=== PATIENT | female | born 1965 | race American Indian/Alaskan Native ===

== ENCOUNTER 2017-06-02 08:00 | Emergency (ER) | payer BC ==
[2017-06-02 08:07] VITALS: BP 111/61
--- NOTE | 2017-06-02 09:23 | Emergency Department Report ---
ED ENT HPI - General Chief complaint: Earache Stated complaint: RIGHT EAR RINGING Source: patient Mode of arrival: Ambulatory Limitations: No Limitations - History of Present Illness Initial comments: 51-year-old -[place] female comes in for complaint of right ear and neck pain 2 days. Patient denies any fever or chills no nausea no vomiting. She denies any discharge from the ears. She reports that she recently got her hair done on Friday. She has no past medical history currently takes no medications has no known drug allergies MD complaint: sore throat, ear pain Severity: moderate Severity scale (0 -10): 7 Quality: aching Consistency: constant Improves with: none Worsens with: swallowing - Related Data Previous Rx's Medication Instructions Recorded Last Taken Type Amoxicillin [Amoxicillin TAB] 875 mg PO BID #20 tablet 06/02/17 Unknown Rx Ibuprofen 800 mg PO Q8H PRN #15 tablet 06/02/17 Unknown Rx Allergies Allergy/AdvReac Type Severity Reaction Status Date / Time No Known Allergies Allergy Unverified 06/02/17 08:07 ED Dental HPI - General Chief complaint: Earache Stated complaint: RIGHT EAR RINGING Source: patient Mode of arrival: Ambulatory Limitations: No Limitations - Related Data Previous Rx's Medication Instructions Recorded Last Taken Type Amoxicillin [Amoxicillin TAB] 875 mg PO BID #20 tablet 06/02/17 Unknown Rx Ibuprofen 800 mg PO Q8H PRN #15 tablet 06/02/17 Unknown Rx Allergies Allergy/AdvReac Type Severity Reaction Status Date / Time No Known Allergies Allergy Unverified 06/02/17 08:07 ED Review of Systems ROS: Stated complaint: RIGHT EAR RINGING Other details as noted in HPI ENT: ear pain (right), congestion Respiratory: cough Cardiovascular: denies: chest pain, palpitations Endocrine: no symptoms reported Gastrointestinal: denies: abdominal pain, nausea, diarrhea Genitourinary: denies: urgency, dysuria, discharge Musculoskeletal: denies: back pain, joint swelling, arthralgia Skin: denies: rash, lesions Neurological: denies: headache, weakness, paresthesias Psychiatric: denies: anxiety, depression Hematological/Lymphatic: denies: easy bleeding, easy bruising ED Past Medical Hx - Past Medical History Previous Medical History?: No - Surgical History Past Surgical History?: Yes Hx Appendectomy: Yes - Social History Smoking Status: Never Smoker Substance Use Type: Alcohol, Marijuana - Medications Home Medications: Home Medications Medication Instructions Recorded Confirmed Last Taken Type Amoxicillin [Amoxicillin TAB] 875 mg PO BID #20 tablet 06/02/17 Unknown Rx Ibuprofen 800 mg PO Q8H PRN #15 tablet 06/02/17 Unknown Rx ED Physical Exam - General Limitations: No Limitations General appearance: alert, in no apparent distress - Head Head exam: Present: atraumatic, normocephalic - ENT ENT exam: Present: mucous membranes moist, normal external ear exam - Expanded ENT Exam Expanded TM/Canal exam: Erythema: Right TM Throat exam: Positive: tonsillar erythema - Neck Neck exam: Present: lymphadenopathy (right) - Respiratory Respiratory exam: Present: normal lung sounds bilaterally. Absent: respiratory distress - Cardiovascular Cardiovascular Exam: Present: regular rate, normal rhythm. Absent: systolic murmur, diastolic murmur, rubs, gallop - Extremities Exam Extremities exam: Present: normal inspection - Back Exam Back exam: Present: normal inspection - Neurological Exam Neurological exam: Present: alert, oriented X3 - Skin Skin exam: Present: warm, dry, intact, normal color. Absent: rash ED Course Vital Signs 06/02/17 08:03 Temperature 98.3 F Pulse Rate 66 Respiratory 18 Rate Blood Pressure 111/61 O2 Sat by Pulse 98 Oximetry ED Medical Decision Making - Medical Decision Making Patient has been evaluated by this provider fast track. I discussed the patient her exam she does have right lymphadenopathy pharyngitis is red and swollen, right ear is erythematous. Discussed the patient replace her antibiotics and have her follow-up with the primary care provider patient verbalized understanding. Critical care attestation.: If time is entered above; I have spent that time in minutes in the direct care of this critically ill patient, excluding procedure time. ED Disposition Clinical Impression: Otitis media Qualifiers: Otitis media type: unspecified Chronicity: acute Qualified Code(s): H66.90 - Otitis media, unspecified, unspecified ear Disposition: - TO HOME OR SELFCARE Is pt being admited?: No Does the pt Need Aspirin: No Condition: Stable Instructions: Otitis Media (ED) Additional Instructions: Please complete antibiotics as prescribed. Ibuprofen for pain and swelling. Follow-up with the primary care provider. Prescriptions: Amoxicillin [Amoxicillin TAB] 875 mg PO BID #20 tablet Ibuprofen 800 mg PO Q8H PRN #15 tablet PRN Reason: Pain Referrals: PRIMARY CAREMD [Primary Care Provider] - 3-5 Days ELIZABETH HAWK MD [Staff Physician] - 3-5 Days Forms: Work/School Release Form(ED)
[2017-06-02] MEDS ORDERED: MOTRIN PO ONE (09:26)
== END 2017-06-02 09:38 | disposition home or self-care (01) ==
LOC: ED 08:00
DX: H66.90 Otitis media, unspecified, unspecified ear (principal); M54.2 Cervicalgia; J02.9 Acute pharyngitis, unspecified; F12.10 Cannabis abuse, uncomplicated
CPT/HCPCS: 99282

== ENCOUNTER 2017-06-23 13:10 | Observation (INO) | payer BC ==
[2017-06-23] MEDS ORDERED: ASPIRIN PO ONE (13:23)
[2017-06-23 14:03] LABS: BUN/Creatinine Ratio 14; Blood Urea Nitrogen 11 mg/dL (7-17); Calcium 9.3 mg/dL (8.4-10.2); Hemolysis Index 12
[2017-06-23 14:06] LABS: Basophils # (Auto) 0.1 K/mm3 (0.0-0.1); Basophils % (Auto) 1.2 % (0.0-1.8); Eosinophils # (Auto) 0.1 K/mm3 (0.0-0.4); Eosinophils % (Auto) 3.1 % (0.0-4.3); Hematocrit 40.7 % (30.3-42.9); Hemoglobin 13.2 gm/dl (10.1-14.3); Lymphocytes # (Auto) 1.7 K/mm3 (1.2-5.4); Lymphocytes % (Auto) 38.4 % (13.4-35.0); Mean Corpuscular HGB Conc 32 % (30-34); Mean Corpuscular Hemoglobin 26 pg (28-32); Mean Corpuscular Volume 81 fl (79-97); Monocytes # (Auto) 0.4 K/mm3 (0.0-0.8); Monocytes % (Auto) 8.9 % (0.0-7.3); Platelet Count 288 K/mm3 (140-440); Red Blood Count 5.04 M/mm3 (3.65-5.03); Red Cell Distribution Width 14.6 % (13.2-15.2)
[2017-06-23] MEDS ORDERED: TYLENOL PO ONE (14:35)
[2017-06-23] MEDS ORDERED: NITROSTAT SL ONE (14:35)
[2017-06-23] MEDS ORDERED: BABY ASPIRIN PO ONE (14:36)
--- NOTE | 2017-06-23 14:36 | Emergency Department Report ---
HPI - General Chief Complaint: Chest Pain Time Seen by Provider: 06/23/17 14:29 - HPI HPI: The patient is a 51-year-old female with a history of hypertension and high cholesterol, who presents for evaluation of chest pain. The patient reports midsternal chest pain for the past one to 2 weeks, constant and pressure-like in quality, moderate severity. She states that her pain feels like "something is sitting on her chest." She states that she has not had a stress test or echocardiogram within the past year. She recently moved to [facility] and does not have an established primary care physician. The patient denies fever, neck pain , parasthesias, dyspnea, cough, hemoptysis, palpitations, dizziness, syncope, unilateral leg swelling, calf muscle pain. Patient also denies cocaine or other stimulant use, history of DVT or PE, recent immobilization, or history of cancer. ED Past Medical Hx - Past Medical History Previous Medical History?: No - Surgical History Past Surgical History?: Yes Hx Appendectomy: Yes - Social History Smoking Status: Never Smoker Substance Use Type: None, Alcohol - Medications Home Medications: Home Medications Medication Instructions Recorded Confirmed Last Taken Type Fluticasone [Flonase] 1 spray NS QDAY 06/23/17 06/23/17 Unknown History ED Review of Systems ROS: Stated complaint: C/P Other details as noted in HPI Constitutional: denies: fever ENT: denies: throat or neck pain Respiratory: denies: cough, shortness of breath Cardiovascular: reports chest pain Endocrine: denies unexplained weight loss or gain Gastrointestinal: denies: abdominal pain, nausea Genitourinary: denies: dysuria Musculoskeletal: denies: leg swelling Skin: denies: rash Neurological: denies: headache Hematological/Lymphatic: denies: easy bleeding or easy bruising Psych: denies sadness or hopelessness Physical Exam - Physical Exam Vital Signs: Vital Signs 06/23/17 13:15 Temperature 97.7 F Pulse Rate 73 Respiratory 18 Rate Blood Pressure 120/75 O2 Sat by Pulse 100 Oximetry Physical Exam: General: well-nourished, well-developed, no acute distress Head: Normocephalic, atraumatic Eyes: normal sclera ENT: Mucous membranes are pink and moist Neck: trachea midline, neck supple, No neck stiffness, no cervical adenopathy Respiratory: Breath sounds equal bilaterally, no wheezing, rales, or rhonchi Cardio: S1 and S2 present, no murmurs, rubs, gallops, capillary refill is brisk Abdomen: Normoactive bowel sounds, soft abdomen, no rigidity, no guarding or rebound tenderness Chest WALL/Back: No tenderness to palpation of the chest wall, no CVA tenderness with percussion Musc: No pitting edema Skin: No rash Neuro: no facial drooping, normal speech Psych: Normal affect ED Course Vital Signs 06/23/17 13:15 Temperature 97.7 F Pulse Rate 73 Respiratory 18 Rate Blood Pressure 120/75 O2 Sat by Pulse 100 Oximetry ED Medical Decision Making - Lab Data Result diagrams: 06/23/17 13:29 06/23/17 13:29 - Medical Decision Making The patient was seen and examined by myself. The patient is placed on a mechanical integrity engineer and continuous pulse ox. On initial evaluation, the patient was found to be in no distress. EKG exhibited normal sinus rhythm and rate, and was negative for findings concerning for acute cardiac infarct at this time. The patient is given an aspirin and a tablet of tylenol. Labs and imaging are obtained. Chest x-ray is negative for pneumothorax, focal consolidation, pulmonary vascular congestion, pleural effusion, or other obvious acute cardiopulmonary disease process. Lab results were non-revealing including negative troponin, WBC, hemoglobin, hematocrit, electrolytes, renal function. The patient was reevaluated and reported that their symptoms were improved. As the patient has experienced constant pressure-like chest pain and risk factors for development of acute coronary event, and has not had a stress test within the past year, the patient will be admitted for close cardiopulmonary monitoring, serial troponins, and evaluation by cardiology. The on-call hospitalist service was contacted. They agreed to admit the patient for further treatment and close monitoring. The ED admit order was placed. The patient was admitted in guarded condition. Critical care attestation.: If time is entered above; I have spent that time in minutes in the direct care of this critically ill patient, excluding procedure time. ED Disposition Clinical Impression: Acute chest pain Disposition: OP ADMIT IP TO THIS HOSP Is pt being admited?: Yes Does the pt Need Aspirin: Yes Condition: Stable Time of Disposition: 14:35
--- NOTE | 2017-06-23 15:27 | XRay Report ---
AP CHEST: HISTORY: chest pain AP view of the chest demonstrates a normal mediastinal and cardiac contour with clear lungs and normal bony and soft tissue structures. IMPRESSION: Unremarkable AP chest.
[2017-06-23] MEDS ORDERED: TYLENOL ONE (15:29)
[2017-06-23] MEDS ORDERED: ASPIRIN ONE (15:29)
--- NOTE | 2017-06-23 15:38 | History and Physical Report ---
History of Present Illness Date of admission: 06/23/17 15:09 Chief complaint: chest pain History of present illness: 51 YO Female with Obesity presents to ED for evaluation. Pt states that she has experienced pain in her chest for the past 2 weeks with worsening symptoms over the past 1 day. Pt states that pain is 8/10, constant, nonradiating, crushing, worsened with exertion, relieved with rest. Pd denies fever, chills, neck pain , parasthesias, dyspnea, productive cough, hemoptysis, palpitations, brbpr, skin rash, dizziness, syncope, unilateral leg swelling, calf muscle pain, prolonged immobility/travel, individual/family history of DVT/PE, trauma, or recent ill contacts. Pt seen and evaluated in ED and found to have Angina. Pt admitted to telemetry. Cardiology consulted in ED. Past History Past Medical History: other (Obesity) Past Surgical History: appendectomy Social history: single. denies: smoking, alcohol abuse, prescription drug abuse Family history: hypertension Medications and Allergies Allergies Allergy/AdvReac Type Severity Reaction Status Date / Time No Known Allergies Allergy Unverified 06/02/17 08:07 Home Medications Medication Instructions Recorded Confirmed Last Taken Type Fluticasone [Flonase] 1 spray NS QDAY 06/23/17 06/23/17 Unknown History Review of Systems Constitutional: no weight loss, no weight gain, no fever Ears, nose, mouth and throat: no ear pain, no ear discharge, no tinnitis, no decreased hearing, no nose pain, no nasal congestion Breasts: no change in shape, no swelling, no mass Cardiovascular: chest pain, shortness of breath, no orthopnea, no palpitations, no rapid/irregular heart beat Respiratory: no cough, no cough with sputum, no excessive sputum, no hemoptysis , no shortness of breath Gastrointestinal: no vomiting, no diarrhea, no constipation Genitourinary Female: no pelvic pain, no flank pain, no menorrhagia, no dysuria , no urinary frequency, no urgency Rectal: no pain, no incontinence, no bleeding Musculoskeletal: no neck stiffness, no neck pain, no shooting arm pain, no arm numbness/tingling, no low back pain, no shooting leg pain, no leg numbness/ tingling Integumentary: no rash, no pruritis, no redness, no sores, no wounds, no jaundice, no boils Neurological: no head injury, no transient paralysis, no paralysis, no weakness , no parathesias, no numbness, no tingling, no seizures, no syncope Psychiatric: no anxiety, no memory loss, no change in sleep habits, no sleep disturbances, no insomnia, no hypersomnia, no change in appetite, no change in libido, no suicidal ideation Endocrine: no cold intolerance, no heat intolerance, no polyphagia, no excessive thirst, no polydipsia, no polyuria, no nocturia, no excessive sweating Hematologic/Lymphatic: no easy bruising, no easy bleeding, no lymphadenopathy, no lymphedema Allergic/Immunologic: no urticaria, no allergic rhinitis, no wheezing Exam - Constitutional Vitals: Temp Pulse Resp BP Pulse Ox 97.7 F 73 18 120/75 100 06/23/17 13:15 06/23/17 13:15 06/23/17 13:15 06/23/17 13:15 06/23/17 13:15 General appearance: Present: mild distress, obese - EENT Eyes: Present: PERRL ENT: hearing intact, clear oral mucosa - Neck Neck: Present: supple, normal ROM - Respiratory Respiratory effort: normal Respiratory: bilateral: CTA - Cardiovascular Heart Sounds: Present: S1 & S2. Absent: rub, click - Extremities Extremities: pulses symmetrical, No edema Peripheral Pulses: within normal limits - Abdominal General gastrointestinal: Present: soft, non-tender, non-distended, normal bowel sounds Female genitourinary: Present: normal - Integumentary Integumentary: Present: clear, warm, dry - Musculoskeletal Musculoskeletal: gait normal, strength equal bilaterally - Psychiatric Psychiatric: appropriate mood/affect, intact judgment & insight - Neurologic Neurologic: CNII-XII intact, moves all extremities Results - Labs CBC & Chem 7: 06/23/17 13:29 06/23/17 16:08 Labs: Abnormal lab results 06/23/17 Range/Units 13:29 RBC 5.04 H (3.65-5.03) M/mm3 MCH 26 L (28-32) pg Lymph % (Auto) 38.4 H (13.4-35.0) % Warren % (Auto) 8.9 H (0.0-7.3) % Assessment and Plan - Patient Problems (1) Angina at rest Current Visit: Yes Status: Acute Plan to address problem: Admit to telemetry, serial ekg, cardiology consulted, d dimer, (2) ACS (acute coronary syndrome) Current Visit: Yes Status: Acute Plan to address problem: serial cardiac enzymes, ekg, telemetry, echo, stress test, morphine, supplemental oxygen, nitro tabs, aspirin, (3) Obesity Current Visit: Yes Status: Acute Qualifiers: Body mass index: BMI 33.0-33.9 Plan to address problem: increased physical activity at discharge, balanced diet (4) Diastolic CHF Current Visit: Yes Status: Suspected Qualifiers: Heart failure chronicity: acute Qualified Code(s): I50.31 - Acute diastolic (congestive) heart failure Plan to address problem: Suspected CHF: Fluid restriction, monitor uop q shift, supplemental oxygen, echo , cardiology consulted, serial cardiac enzymes, ekg, telemetry, stress test (5) DVT prophylaxis Current Visit: Yes Status: Acute Plan to address problem: SCD to BLE
[2017-06-23] MEDS ORDERED: TYLENOL PO PRN (16:02)
[2017-06-23] MEDS ORDERED: PROVENTIL IH PRN (16:02)
[2017-06-23] MEDS ORDERED: MORPHINE IV PRN (16:02)
[2017-06-23] MEDS ORDERED: ZOFRAN IV PRN (16:02)
[2017-06-23] MEDS ORDERED: SODIUM CHLORIDE FLUSH SYRINGE 10 ML IV PRN ×2 (16:02)
[2017-06-23 16:41] LABS: Blood Urea Nitrogen 12 mg/dL (7-17)
[2017-06-23 16:42] LABS: BUN/Creatinine Ratio 17; Calcium 9.5 mg/dL (8.4-10.2); Hemolysis Index 1
[2017-06-23 16:45] LABS: Chol/HDL Ratio 2.7 %
[2017-06-23] MEDS: SODIUM CHLORIDE FLUSH SYRINGE 10 ML IV SCH (21:09)
[2017-06-23] MEDS: PEPCID PO SCH (21:09)
[2017-06-23] MEDS: MORPHINE IV PRN (21:16)
[2017-06-24] MEDS: MORPHINE IV PRN (04:31)
[2017-06-24] MEDS ORDERED: LEXISCAN IV ONE (11:48)
--- NOTE | 2017-06-24 11:54 | Discharge Summary ---
Providers - Providers Date of Admission: 06/23/17 15:09 Date of discharge: 06/25/17 Attending physician: DESTINI MALONE MD 06/23/17 Consult to Cardiac Rehabilitation [CONS] Routine Reason For Exam: Phase I 06/23/17 16:03 Consult to Cardiology [CONS] Routine Consulting Provider: TUNDE RAMOS Reason For Exam: acs Primary care physician: CINDER SNAPPER Hospitalization Condition: Stable Pertinent studies: Echocardiogram revealed an ejection fraction of 55-60% with normal global left ventricular systolic function Stress test revealed a normal myocardial perfusion study CTA chest was within normal limits Hospital course: 51 YO Female with Obesity presented with complaints of pain in her chest for the past 2 weeks with worsening symptoms 24 hours prior to admission Patient received a cardiac workup which included exercise thallium stress test, during which she exercised for 7-1/2 minutes of a [place] protocol, with no chest pain and no ST changes of ischemia. The thallium images are normal. Echocardiogram. revealed normal left ventricular systolic function with ejection fraction of 55-60%. Serial cardiac enzymes were negative. Patient experienced some bouts of bradycardia during her hospital stay cardiology services were consulted and recommended no further cardiac workup. Patient was safe to discharge home with Pepcid as her etiology of chest pain is likely that of GERD. Discharge diagnoses Atypical chest pain Bradycardia Obesity Disposition: DC-01 TO HOME OR SELFCARE Time spent for discharge: 32 minutes Core Measure Documentation - Palliative Care Palliative Care/ Comfort Measures: Not Applicable - Core Measures Any of the following diagnoses?: none Exam - Constitutional Vitals: Temp Pulse Resp BP Pulse Ox 97.8 F 60 16 93/57 100 06/24/17 03:57 06/24/17 03:57 06/24/17 03:57 06/24/17 03:57 06/24/17 03:57 General appearance: Present: no acute distress, well-nourished - EENT Eyes: Present: PERRL ENT: hearing intact, clear oral mucosa - Neck Neck: Present: supple, normal ROM - Respiratory Respiratory effort: normal Respiratory: bilateral: CTA - Cardiovascular Heart Sounds: Present: S1 & S2. Absent: rub, click - Extremities Extremities: pulses symmetrical, No edema Peripheral Pulses: within normal limits - Abdominal General gastrointestinal: Present: soft, non-tender, non-distended, normal bowel sounds - Integumentary Integumentary: Present: clear, warm, dry - Musculoskeletal Musculoskeletal: gait normal, strength equal bilaterally - Psychiatric Psychiatric: appropriate mood/affect, intact judgment & insight - Neurologic Neurologic: CNII-XII intact, moves all extremities Plan Activity: fall precautions Weight Bearing Status: Weight Bear as Tolerated Diet: low fat, low cholesterol, other (avoid tomato based products, chocolate, citrus juice, alcohol as these tend to aggravate acid reflux) Follow up with: PRIMARY CARE,MD [Primary Care Provider] - 7 Days Prescriptions: Famotidine [Pepcid] 20 mg PO BID #60 tablet Pending Studies Discharge is pending negative stress test
[2017-06-24] MEDS ORDERED: MORPHINE IV PRN (12:10)
[2017-06-24] MEDS: SODIUM CHLORIDE FLUSH SYRINGE 10 ML IV SCH ×2 (13:16→21:10)
[2017-06-24] MEDS: PEPCID PO SCH ×2 (13:19→21:10)
[2017-06-24] MEDS: FLONASE NS SCH (13:19)
--- NOTE | 2017-06-24 17:44 | Consultation ---
History of Present Illness Consult date: 06/24/17 Consult reason: chest pain History of present illness: The patient is a 51-year-old woman who presented to the hospital with chest pain. She describes one to 2 weeks of nonexertional, poorly characterized chest pain. On presentation, the ECG was a normal sinus rhythm, normal ECG with no ischemic changes. Cardiac enzymes were normal. Today, she underwent an exercise thallium stress test, during which she exercised for 7-1/2 minutes of a [place] protocol, with no chest pain and no ST changes of ischemia. The thallium images are normal. Similarly, echocardiogram revealed normal left ventricular systolic function with ejection fraction of 55-60%, no significant valvular lesions. Past History Past Medical History: other (Obesity) Past Surgical History: appendectomy Social history: single. denies: smoking, alcohol abuse, prescription drug abuse Family history: hypertension Medications and Allergies Allergies Allergy/AdvReac Type Severity Reaction Status Date / Time No Known Allergies Allergy Unverified 06/02/17 08:07 Home Medications Medication Instructions Recorded Confirmed Last Taken Type Fluticasone [Flonase] 1 spray NS QDAY 06/23/17 06/23/17 Unknown History Famotidine [Pepcid] 10 mg PO BID #30 tablet 06/24/17 Unknown Rx Active Meds: Active Medications Acetaminophen (Tylenol) 650 mg PO Q4H PRN PRN Reason: Pain MILD(1-3)/Fever >100.5/GARCÍA Albuterol (Proventil) 2.5 mg IH Q4HRT PRN PRN Reason: Shortness Of Breath Famotidine (Pepcid) 10 mg PO BID [facility] Last Admin: 06/24/17 13:19 Dose: 10 mg Fluticasone Propionate (Flonase) 50 mcg NS QDAY [facility] Last Admin: 06/24/17 13:19 Dose: 50 mcg Morphine Sulfate (Morphine) 2 mg IV Q4H PRN PRN Reason: Pain, Moderate (4-6) Last Admin: 06/24/17 15:10 Dose: 2 mg Ondansetron HCl (Zofran) 4 mg IV Q8H PRN PRN Reason: Nausea And Vomiting Sodium Chloride (Sodium Chloride Flush Syringe 10 Ml) 10 ml IV BID [facility] Last Admin: 06/24/17 13:16 Dose: 10 ml Sodium Chloride (Sodium Chloride Flush Syringe 10 Ml) 10 ml IV PRN PRN PRN Reason: LINE FLUSH Review of Systems Cardiovascular: chest pain, no orthopnea, no palpitations, no rapid/irregular heart beat, no edema, no syncope, no lightheadedness, no shortness of breath Physical Examination Vital Signs Temp Pulse Resp BP Pulse Ox 97.7 F 73 18 120/75 100 06/23/17 13:15 06/23/17 13:15 06/23/17 13:15 06/23/17 13:15 06/23/17 13:15 General appearance: no acute distress HEENT: Positive: PERRL Neck: Positive: neck supple Cardiac: Positive: Reg Rate and Rhythm Lungs: Positive: clear to auscultation Neuro: Positive: Grossly Intact Abdomen: Positive: Soft Female genitourinary: deferred Skin: Positive: Clear Extremities: Absent: edema Results 06/23/17 13:29 06/23/17 16:08 EKG interpretations - Telemetry EKG Rhythm: Sinus Rhythm Assessment and Plan - Patient Problems (1) Chest pain Current Visit: Yes Status: Acute Plan to address problem: Atypical chest pain, extensive cardiac workup including serial ECGs, cardiac enzymes, thallium stress test and echocardiogram are all benign. Okay for cardiac discharge.
--- NOTE | 2017-06-24 20:46 | Progress Note ---
Assessment and Plan Assessment and plan: Chest pain acs ruled out, MPI negative -obtain cta chest to r/o pe Bradycardia -obtain cardiology consult Obesity lifestyle modification upon dc no evidence of chf on exam, will obtain echo History Interval history: she is still c/o severe cp that radiates down her left arm no sob, no cough, no vomiting, no GARCÍA, no fever, no focal weakness Hospitalist Physical - Constitutional Vitals: Temp Pulse Resp BP Pulse Ox 98.3 F 55 L 20 105/64 99 06/24/17 19:50 06/24/17 19:50 06/24/17 19:50 06/24/17 19:50 06/24/17 19:50 General appearance: Present: no acute distress - EENT Eyes: Present: PERRL ENT: hearing intact - Neck Neck: Present: supple - Respiratory Respiratory effort: normal - Cardiovascular Rhythm: other (chest wall is tender) Heart Sounds: Present: S1 & S2 - Extremities Extremities: no ischemia Peripheral Pulses: within normal limits - Abdominal General gastrointestinal: soft, non-distended, normal bowel sounds - Integumentary Integumentary: Present: clear, warm, dry - Psychiatric Psychiatric: appropriate mood/affect, intact judgment & insight - Neurologic Neurologic: CNII-XII intact, moves all extremities Results - Labs CBC & Chem 7: 06/23/17 13:29 06/23/17 16:08 Labs: Laboratory Last Values WBC 4.5 K/mm3 (4.5-11.0) 06/23/17 13:29 RBC 5.04 M/mm3 (3.65-5.03) H 06/23/17 13:29 Hgb 13.2 gm/dl (10.1-14.3) 06/23/17 13:29 Hct 40.7 % (30.3-42.9) 06/23/17 13:29 MCV 81 fl (79-97) 06/23/17 13:29 MCH 26 pg (28-32) L 06/23/17 13:29 MCHC 32 % (30-34) 06/23/17 13:29 RDW 14.6 % (13.2-15.2) 06/23/17 13:29 Plt Count 288 K/mm3 (140-440) 06/23/17 13:29 Lymph % (Auto) 38.4 % (13.4-35.0) H 06/23/17 13:29 Gibson % (Auto) 8.9 % (0.0-7.3) H 06/23/17 13:29 Eos % (Auto) 3.1 % (0.0-4.3) 06/23/17 13:29 Baso % (Auto) 1.2 % (0.0-1.8) 06/23/17 13:29 Lymph # 1.7 K/mm3 (1.2-5.4) 06/23/17 13:29 Gibson # 0.4 K/mm3 (0.0-0.8) 06/23/17 13:29 Eos # 0.1 K/mm3 (0.0-0.4) 06/23/17 13: Baso # 0.1 K/mm3 (0.0-0.1) 06/23/17 13: Seg Neutrophils % 48.4 % (40.0-70.0) 06/23/17 13: Seg Neutrophils # 2.2 K/mm3 (1.8-7.7) 06/23/17 13:29 D-Dimer < 135.00 ng/mlDDU (0-234) 06/23/17 15:45 Sodium 137 mmol/L (137-145) 06/23/17 16:08 Potassium 4.6 mmol/L (3.6-5.0) D 06/23/17 16:08 Chloride 97.1 mmol/L (98-107) L 06/23/17 16:08 Carbon Dioxide 29 mmol/L (22-30) 06/23/17 16:08 Anion Gap 16 mmol/L 06/23/17 16:08 BUN 12 mg/dL (7-17) 06/23/17 16:08 Creatinine 0.7 mg/dL (0.7-1.2) 06/23/17 16:08 Estimated GFR > 60 ml/min 06/23/17 16:08 BUN/Creatinine Ratio 17 % 06/23/17 16:08 Glucose 83 mg/dL (65-100) 06/23/17 16:08 Calcium 9.5 mg/dL (8.4-10.2) 06/23/17 16:08 Troponin T < 0.010 ng/mL (0.00-0.029) 06/23/17 21:55 NT-Pro-B Natriuret Pep 7.96 pg/mL (0-900) 06/23/17 16:29 Triglycerides 129 mg/dL (2-149) 06/23/17 16:08 Cholesterol 162 mg/dL (50-199) 06/23/17 16:08 LDL Cholesterol Direct 93 mg/dL (50-130) 06/23/17 16:08 HDL Cholesterol 60 mg/dL (40-59) H 06/23/17 16:08 Cholesterol/HDL Ratio 2.70 % 06/23/17 16:08
--- NOTE | 2017-06-24 21:35 | Treadmill Report ---
THALLIUM STRESS TEST REPORT LEFT VENTRICLE: Left ventricular chamber size is within normal spread. Perfusion study demonstrated homogeneous uptake of the tracer in all segments, no significant perfusion defects identified. Gated analysis demonstrates normal left ventricular systolic function, ejection fraction 57%. CONCLUSION: Normal myocardial perfusion study. JOB# [id number] CA/NTS
--- NOTE | 2017-06-24 23:42 | Cat Scan Report ---
FINAL REPORT PROCEDURE: CT ANGIO CHEST TECHNIQUE: Computerized tomographic angiography of the chest was performed after the IV injection of iodinated nonionic contrast including image processing. The image data was postprocessed using 2-dimensional multiplanar reformatted (MPR) and 3-dimensional (MIP and/or volume rendered) techniques. HISTORY: chest pain COMPARISON: No prior studies are available for comparison. FINDINGS: Heart and pericardium: Normal. Thoracic aorta: Normal. Pulmonary vasculature: Normal. Lymph nodes: No enlarged thoracic lymph nodes. Lungs: Normal. Pleural space: No effusion, thickening, or pneumothorax. Musculoskeletal structures: No significant abnormality. Upper abdominal structures: No significant abnormality. IMPRESSION: Normal Examination
[2017-06-25 10:25] VITALS: BP 116/63
[2017-06-25] MEDS: PEPCID PO SCH (10:57)
[2017-06-25] MEDS: FLONASE NS SCH (10:58)
[2017-06-25] MEDS: SODIUM CHLORIDE FLUSH SYRINGE 10 ML IV SCH (10:59)
--- NOTE | 2017-06-25 12:13 | Progress Note ---
Assessment and Plan - Patient Problems (1) Chest pain Current Visit: Yes Status: Acute Plan to address problem: Atypical chest pain pt exercise thallium stress test, during which she exercised for 7-1/2 minutes of a [place] protocol, with no chest pain and no ST changes of ischemia. The thallium images are normal. Echocardiogram revealed normal left ventricular systolic function with ejection fraction of 55-60%. No further cardiac workup indicated. Stable cardiac ghotra for discharge home. Subjective Date of service: 06/25/17 Interval history: Patient denies chest pain. Objective Vital Signs Temp Pulse Resp BP BP Pulse Ox 06/25/17 08:42 98.4 F 49 L 16 116/63 99 06/25/17 05:26 46 L 06/25/17 04:38 98.0 F 49 L 20 111/68 100 06/25/17 04:00 65 06/24/17 23:42 98.4 F 50 L 20 112/66 100 06/24/17 20:08 64 06/24/17 19:50 98.3 F 57 L 20 105/64 98 06/24/17 19:49 98.2 F 54 L 20 105/64 99 06/24/17 15:39 98.0 F 16 06/24/17 13:00 20 - Physical Examination General: No Apparent Distress HEENT: Positive: PERRL Neck: Positive: trachea midline Cardiac: Positive: Reg Rate and Rhythm Lungs: Positive: Decreased Breath Sounds Neuro: Positive: Grossly Intact Extremities: Absent: edema
== END 2017-06-25 15:42 | disposition home or self-care (01) ==
LOC: ED 13:10 → INTOOBSV 15:09 → 4A 15:09
PROVIDERS: ADMIT Internal Medicine; ATTEND Internal Medicine
DX: I24.9 Acute ischemic heart disease, unspecified (principal); I11.0 Hypertensive heart disease with heart failure; I50.31 Acute diastolic (congestive) heart failure; R00.1 Bradycardia, unspecified; E78.00 Pure hypercholesterolemia, unspecified; E66.9 Obesity, unspecified; Z68.35 Body mass index [BMI] 35.0-35.9, adult; Z82.49 Family history of ischemic heart disease and other diseases of the circulatory system
CPT/HCPCS: 36415; 71045; 71275; 78452; 80048; 80061; 82962; 83880; 84484; 85025; 85379; 93005; 93010; 93017; 93306; 96374; 96376; 99285; A9502; G0378; J2270; Q9967; J2785